=== PATIENT | female | born 1965 | race Caucasian/White ===

== ENCOUNTER 2024-05-01 09:09 | Emergency (ER) | payer BC ==
[~2024-05-01] VITALS: Ht 157.5 cm; Wt 67.0 kg
[2024-05-01] MEDS ORDERED: BRILINTA90 MG PO (09:27)
[2024-05-01] MEDS ORDERED: LISINOPRIL10 MG PO (09:27)
[2024-05-01] MEDS ORDERED: METOPROLOL SUCC25 MG PO (09:28)
[2024-05-01] MEDS ORDERED: ROSUVASTATIN CA40 MG (09:28)
[2024-05-01 09:49] LABS: BASOPHILS 0.6 % (0-2); EOSINOPHILS 0.7 % (0-6); HEMATOCRIT 37.2 % (35.0-50.0); HEMOGLOBIN 12.8 g/dL (12.0-18.0); LYMPHOCYTES 18.2 % (24-44); MCH 31.6 (27-36); MCHC 34.5 g/dl (30-36); MCV 91.6 fl (81-99); MONOCYTES 6.8 % (0-12); NEUTROPHILS 73.7 % (39-80); PLATELET COUNT 243 K/uL (140-440); RBC 4.06 M/ul (4.3-5.7); RDW 12.6 (10.5-15.0)
[2024-05-01 10:14] LABS: ALBUMIN 3.6 g/dL (3.4-5.0); ALBUMIN/GLOBULIN RATIO 0.97 (1.1-2.4); BILIRUBIN, TOTAL 0.5 ng/dL (0.2-1.0); BUN/CREATININE RATIO 14.43 (6.0-28.6); CREATININE, SERUM 0.97 mg/dL (0.55-1.02); PROTEIN, TOTAL 7.3 g/dL (6.4-8.2)
[2024-05-01] MEDS ORDERED: hydrOXYzine pamoate 25 MG CAP PO ONE (10:45)
[2024-05-01] MEDS ORDERED: HYDROXYZINE HCL25 MG PO (12:01)
[2024-05-01 12:06] VITALS: BP 134/90
== END 2024-05-01 12:06 | disposition home or self-care (01) ==
LOC: ED 09:09
PROVIDERS: Emergency Medicine
DX: R06.00 Dyspnea, unspecified (principal); F41.9 Anxiety disorder, unspecified; Z79.899 Other long term (current) drug therapy
CPT/HCPCS: 36415; 71045; 80053; 83880; 84484; 85025; 93306; 99285-25; Q0177